=== PATIENT | male | born 1960 | race Caucasian/White ===

== ENCOUNTER 2019-10-26 04:28 | Inpatient (IN) | payer SELFPAY ==
[~2019-10-26] VITALS: Ht 182.9 cm; Wt 80.0 kg
[2019-10-26] MEDS ORDERED: ONDANSETRON HCL 4MG/2ML INJ IV STA (04:51)
[2019-10-26] MEDS ORDERED: FUROSEMIDE 100MG/10ML VIAL IVP ONE (05:00)
[2019-10-26 06:52] LABS: INR 1.3; PARTIAL THROMBOPLASTIN TIME 32.8 sec (23.4-31.0)
[2019-10-26 06:54] LABS: CLARITY URINE CLEAR (CLEAR); COLOR URINE YELLOW (YELLOW); KETONES URINE NEGATIVE (NEGATIVE); LEUKOCYTE ESTERASE URINE NEGATIVE (NEGATIVE); NITRITE URINE NEGATIVE (NEGATIVE); OCCULT BLOOD URINE 1+ (NEGATIVE); PROTEIN URINE 3+ (NEGATIVE); SPECIFIC GRAVITY URINE 1.016 (1.005-1.030)
[2019-10-26 07:39] LABS: *AMPHETAMINES SCREEN URINE NEGATIVE (NEGATIVE); *BARBITURATES SCREEN URINE NEGATIVE (NEGATIVE); *BENZODIAZEPINES SCREEN URINE NEGATIVE (NEGATIVE); *COCAINE SCREEN URINE NEGATIVE (NEGATIVE)
[2019-10-26 07:40] LABS: CANNABINOID URINE SCREEN NEGATIVE (NEGATIVE); METHADONE URINE SCREEN NEGATIVE (NEGATIVE); OPIATES URINE SCREEN NEGATIVE (NEGATIVE); PHENCYCLIDINE URINE SCREEN NEGATIVE (NEGATIVE)
[2019-10-26 07:51] LABS: CHLORIDE 94 mEq/L (98-107)
[2019-10-26 07:57] LABS: MEAN CORPUSCULAR HEMOGLOBIN 32.5 pg (28.0-32.0); MEAN CORPUSCULAR VOLUME 96.6 fL (80.0-94.0); RED BLOOD CELL COUNT 7.64 mill/uL (4.7-6.1); RED CELL DISTRIBUTION WIDTH 17.5 % (11.6-14.6)
[2019-10-26 08:03] LABS: HEMOGLOBIN. 24.8 g/dL (14.0-18.0)
[2019-10-26 08:04] LABS: HEMATOCRIT. 73.8 % (42.0-52.0)
[2019-10-26] MEDS ORDERED: LEVOFLOXACIN 500MG PREMIX 100 ML IV ONE (08:15)
[2019-10-26 08:29] LABS: ETHANOL BLOOD 242 mg/dL
[2019-10-26 08:51] LABS: PLATELET ESTIMATE NORMAL
[2019-10-26 08:53] LABS: PLATELET 210 x1000/uL (130-400)
[2019-10-26 09:01] VITALS: BP 100/49
[2019-10-26] MEDS ORDERED: AZITHROMYCIN 500 MG in DEXT 5% WATER 250 ML IV SCH (10:00)
[2019-10-26] MEDS ORDERED: MULTIVITAMINS,THER W-MINERALS TABLET PO SCH (10:00)
[2019-10-26] MEDS ORDERED: SODIUM CHLORIDE 0.9% 1,000 ML IV SCH (10:00)
[2019-10-26] MEDS ORDERED: DOCUSATE SODIUM 100MG CAPSULE PO PRN (10:00)
[2019-10-26] MEDS ORDERED: ACETAMINOPHEN 325MG TABLET PO PRN (10:00)
[2019-10-26] MEDS ORDERED: AZITHROMYCIN 500 MG TABLET PO SCH (10:00)
[2019-10-26] MEDS ORDERED: FOLIC ACID 1MG TABLET PO SCH (10:00)
[2019-10-26] MEDS ORDERED: HYDROCODONE/ACETAMINOPHEN 5/325MG TABLET PO PRN (10:00)
[2019-10-26] MEDS ORDERED: ONDANSETRON HCL 4MG/2ML INJ IV PRN (10:00)
[2019-10-26] MEDS ORDERED: THIAMINE HCL 100MG TABLET PO SCH (10:00)
[2019-10-26] MEDS ORDERED: CLONIDINE 0.1MG TABLET PO PRN (10:00)
[2019-10-26] MEDS ORDERED: GUAIFENESIN 200MG/10ML SUGAR FREE UDC PO PRN (10:00)
[2019-10-26] MEDS ORDERED: LORAZEPAM 2MG/ML CPJ IV PRN (10:00)
[2019-10-26] MEDS ORDERED: MAGNESIUM/ALUMINUM HYDROXIDE/SIMETHICONE 30ML UDC PO PRN (10:00)
[2019-10-26] MEDS ORDERED: CEFTRIAXONE 1 G PREMIX 50 ML IV SCH (11:00)
== END 2019-10-26 11:31 | disposition expired | DRG 775 ==
LOC: ER 04:28 → 7WST 06:19 → EDBEDREQ 07:00 → EDBEDREQTM 07:00 → CANRESERV 07:37 → ENRESERV 07:37 → MICUSO 10:30
PROVIDERS: ADMIT Hospitalist; ATTEND Hospitalist
PROC: 0BH17EZ Insertion of Endotracheal Airway into Trachea, Via Natural or Artificial Opening (ICD-10-PCS; principal; 2019-10-26)
PROC: 5A1935Z Respiratory Ventilation, Less than 24 Consecutive Hours (ICD-10-PCS; 2019-10-26)
PROC: 5A12012 Performance of Cardiac Output, Single, Manual (ICD-10-PCS; 2019-10-26)
DX: F10.129 Alcohol abuse with intoxication, unspecified (principal); N17.9 Acute kidney failure, unspecified; E87.2 Acidosis; I95.9 Hypotension, unspecified; I10 Essential (primary) hypertension; R09.02 Hypoxemia; Z20.828 Contact with and (suspected) exposure to other viral communicable diseases
CPT/HCPCS: 36415; 71045; 80053; 80305; 80320; 81003; 82140; 83605; 83880; 84145; 84484; 85025; 87420; 87635; 87804; 92950; 93005; 94002; 96365; 99291; J0696; J1940; J1956; J2405; G0480